=== PATIENT | male | born 1990 | race Caucasian/White ===

== ENCOUNTER 2022-07-05 21:25 | Inpatient (IN) | payer OTHER ==
[~2022-07-05] VITALS: Ht 185.4 cm; Wt 122.5 kg
[2022-07-05 21:30] VITALS: BP 110/66
--- NOTE | 2022-07-05 22:00 | NUR ---
PTIS HERE FOR EVALUATION OF CHEST PAIN ASSOSICIATED WITH NAUSEA.
--- NOTE | 2022-07-05 22:15 | NUR ---
Patient takent to X-ray via WC.
[2022-07-05 22:37] LABS: BASOPHILS # (AUTO) 0.1 K/uL (0.00-0.22); BASOPHILS % (AUTO) 0.7 % (0.0-2.0); EOSINOPHILS # (AUTO) 0.3 K/uL (0-0.4); EOSINOPHILS % (AUTO) 4.1 % (0.0-4.0); HEMATOCRIT 47.1 % (36-52); HEMOGLOBIN 15.9 g/dL (12.0-18.0); LYMPHOCYTES % (AUTO) 25.7 % (20.5-51.1); MEAN CORPUSCULAR HEMOGLOBIN 29 pg (27-31); MEAN CORPUSCULAR HGB CONC 34 g/dL (33-37); MEAN CORPUSCULAR VOLUME 85.7 fL (80-94); MONOCYTES # (AUTO) 0.7 K/uL (0.8-1.0); MONOCYTES % (AUTO) 9.3 % (1.7-9.3); NEUTROPHILS # (AUTO) 4.7 K/uL (1.8-7.7); NEUTROPHILS % (AUTO) 60.2 % (42.2-75.2); PLATELET COUNT (AUTO) 262 K/uL (140-450); RED CELL DISTRIBUTION WIDTH 14.7 % (11.6-13.7); WHITE BLOOD COUNT (AUTO) 7.9 K/uL (4.8-10.8)
--- NOTE | 2022-07-05 22:46 | NUR ---
Patient taken to bed 8.
[2022-07-05] MEDS ORDERED: IBUPROFEN 800 MG TAB PO ONE (23:05)
[2022-07-05 23:09] LABS: ALBUMIN 4.7 g/dL (3.4-5.0); ANION GAP 11.9 (8-16); ASPARTATE AMINOTRANSFERASE 16 U/L (15-37); CHLORIDE 102 mmol/L (98-107); GFR ARICAN-AMERICAN 113 mL/min (>90); GLUCOSE 97 mg/dL (74-106); POTASSIUM 3.9 mmol/L (3.5-5.1); SODIUM SERUM 139 mmol/L (136-145); TOTAL BILIRUBIN 0.3 mg/dL (0.0-1.0); UREA NITROGEN, BLOOD 22 mg/dL (7-18)
[2022-07-05] MEDS ORDERED: ASPIRIN 325 MG TAB PO ONE (23:30)
[2022-07-05] MEDS ORDERED: ASPIRIN 325 MG TAB ONE (23:36)
[2022-07-06] MEDS ORDERED: MORPHINE SULFATE 4 MG/ML SYR IVP PRN (01:30)
[2022-07-06] MEDS ORDERED: KCL 20 MEQ IN 100 mL PREMIX 200 ML IV PRN (01:30)
[2022-07-06] MEDS ORDERED: ACETAMINOPHEN 325 MG TAB PO PRN (01:30)
[2022-07-06] MEDS ORDERED: ONDANSETRON 4 MG/2 ML VIAL IVP PRN (01:30)
[2022-07-06] MEDS ORDERED: HYDROcodone/APAP 5/325 MG 1 TAB TAB PO PRN (01:30)
[2022-07-06] MEDS ORDERED: MAGNESIUM OXIDE 400 MG TAB PO PRN (01:30)
[2022-07-06] MEDS ORDERED: MAG SULF 2000 MG/WATER PREMIX 50 ML IV PRN (01:30)
[2022-07-06] MEDS ORDERED: POTASSIUM CHLORIDE 10 MEQ TABER PO PRN (01:30)
--- NOTE | 2022-07-06 02:14 | NUR ---
BELONGINGS LIST AND MED RECONCILE COMPLETED
--- NOTE | 2022-07-06 07:20 | NUR ---
Report and continuation of care received from MAURICE Delvalle.
--- NOTE | 2022-07-06 07:25 | NUR ---
Received patient sitting upright with cardiac nurse practitioner in place. Pt c/o chest pain 6/10, pressure-like, non-radiating. Bed locked in lowest position, side rails x 1.
--- NOTE | 2022-07-06 08:00 | NUR ---
PT ARRIVED FROM ER VIA GURNEY. PT AWAKE, ALERT AND ORIENTED X4, COOPERATIVE WITH NO SIGNS OF DISTRESS. AMBULATORY AND CONTINENT. GENERAL PHYSICAL ASSESSMENT DONE. ORIENTED PT TO BED CONTROLS, CALL LIGHT, BATHROOM. COMFORT MEASURES PROVIDED, BED IN LOWEST POSITION, CALL LIGHT WITHIN REACH.
--- NOTE | 2022-07-06 08:04 | NUR ---
Patient will be admitted to care of Dr. Olivier. Admited to Telemetry. Will go to room 126A. Belongings list completed. Report to MAURICE Zaidi.
--- NOTE | 2022-07-06 09:20 | NUR ---
PATIENT HAS BEEN SCREENED AND CATEGORIZED LOW NUTRITION RISK. PATIENT WILL BE SEEN WITHIN 7 DAYS OF ADMISSION. 07/13/22 REVIEWED BY YAIMA ALFREDO RD
[2022-07-06 12:00] VITALS: BP 125/77
[2022-07-06 16:00] VITALS: BP 123/72
--- NOTE | 2022-07-06 19:05 | NUR ---
RECEIVED REPORT FROM MAURICE BALDIWN FOR CONTINUITY OF CARE. PT A/A/O IN BED. AMBULATORY. RESPIRATIONS EVEN AND UNLABORED ON RA. NO DISTRESS NOTED. DENIES PAIN. SKIN INTACT, WARM AND DRY TO TOUCH. INITIAL ASSESSMENT DONE. POC DISCUSSED WITH PT AND RN ANALIZA. CALL LIGHT WITHIN REACH. SAFETY PRECAUTIONS IN PLACE.
[2022-07-06 20:00] VITALS: BP 105/62
--- NOTE | 2022-07-06 20:45 | NUR ---
ADMINISTERED DUE MED. PT TOLERATED WELL.
[2022-07-07] VITALS: BP 122/75
[2022-07-07 04:00] VITALS: BP 122/82
--- NOTE | 2022-07-07 04:36 | NUR ---
V/S TAKEN. NO DISTRESS NOTED. DENIES PAIN. SAFETY PRECAUTIONS IN PAIN.
[2022-07-07 05:39] LABS: BASOPHILS % (AUTO) 0.5 % (0.0-2.0); EOSINOPHILS # (AUTO) 0.3 K/uL (0-0.4); EOSINOPHILS % (AUTO) 4.5 % (0.0-4.0); HEMATOCRIT 44.5 % (36-52); HEMOGLOBIN 15.5 g/dL (12.0-18.0); LYMPHOCYTES # (AUTO) 2.2 K/uL (2.0-11.5); LYMPHOCYTES % (AUTO) 32.5 % (20.5-51.1); MEAN CORPUSCULAR HEMOGLOBIN 30 pg (27-31); MEAN CORPUSCULAR HGB CONC 35 g/dL (33-37); MEAN CORPUSCULAR VOLUME 84.7 fL (80-94); MONOCYTES # (AUTO) 0.7 K/uL (0.8-1.0); MONOCYTES % (AUTO) 9.8 % (1.7-9.3); NEUTROPHILS # (AUTO) 3.5 K/uL (1.8-7.7); NEUTROPHILS % (AUTO) 52.7 % (42.2-75.2); PLATELET COUNT (AUTO) 252 K/uL (140-450); RED BLOOD CELL COUNT(AUTO) 5.26 MIL/uL (4.20-6.10); RED CELL DISTRIBUTION WIDTH 14.5 % (11.6-13.7); WHITE BLOOD COUNT (AUTO) 6.7 K/uL (4.8-10.8)
[2022-07-07 06:44] LABS: ALBUMIN 4.3 g/dL (3.4-5.0); ANION GAP 13.9 (8-16); CARBON DIOXIDE 23.8 mmol/L (21-32); POTASSIUM 3.7 mmol/L (3.5-5.1); TOTAL BILIRUBIN 0.6 mg/dL (0.0-1.0)
--- NOTE | 2022-07-07 07:22 | NUR ---
GAVE BEDSIDE REPORT TO DAY SHIFT NURSE ELISEO FOR CONTINUITY OF CARE. ALL NEEDS MET THROUGHOUT SHIFT. PT IS STABLE.
--- NOTE | 2022-07-07 07:25 | NUR ---
RECEIVED PATIENT FROM SUPERVISOR PLASMA NURSE.PATIENT SLEEPING IN BED.CHEST RISING AND FALLING EVENLY.NO OTHER SINGS OF DISTRESS NOTED.WILL CONTINUE TO MONITOR.
[2022-07-07 08:00] VITALS: BP 120/70
[2022-07-07 12:00] VITALS: BP 119/75
[2022-07-07 14:23] VITALS: BP 119/75
--- NOTE | 2022-07-07 16:06 | NUR ---
GOT DISCHARGE ORDER FROM MD.GAVE DISCHARGE PAPER WORKS AND GIVEN DISCHARGE TEACHING REGARDING CHEST PAIN.PATIENT VERBALIZED UNDERSTANDING. TEXTED MD REGARDING THE DISCHARGE MEDICINES. HE REPLIED NO DISCHARGE MEDICINES NEEDED . ID BAND REMOVED. PERIPHERAL IV REMOVED. TELEMONITOR REMOVED. DISCHARGED HOME.
== END 2022-07-07 16:18 | disposition home or self-care (01) | DRG 190 ==
LOC: MED 21:25 → MTU 07-06 01:28 → MMU 07-06 11:32
PROVIDERS: ADMIT Hospitalist; ATTEND Internal Medicine
DX: I21.4 Non-ST elevation (NSTEMI) myocardial infarction (principal); G51.0 Bell's palsy; R07.89 Other chest pain; J45.909 Unspecified asthma, uncomplicated; Z20.822 Contact with and (suspected) exposure to COVID-19
CPT/HCPCS: 36415; 71045; 80053; 83735; 83880; 84484; 85025; 85379; 87081; 99291; 99292; J1644; J2270